=== PATIENT | male | born 1985 | race Caucasian/White ===

== ENCOUNTER → 2023-06-19 06:46 | Outpatient (REF) | payer OTHER, SELFPAY | LOC: PAVMRI 06:46 | PROVIDERS: ATTENDING PHYSICIAN Chiropractor; FAMILY PHYSICIAN Family Medicine | DX: M54.50 Low back pain, unspecified (principal) | CPT/HCPCS: 72148 ==

== ENCOUNTER 2025-03-14 13:01 | Emergency (ER) | payer OTHER, SELFPAY ==
[2025-03-14 13:11] VITALS: BP 169/97
--- NOTE | 2025-03-14 14:18 | ED.GENMED ---
History of Present Illness
General
Chief Complaint: Abdominal Pain
Source: patient
Exam Limitations: none
Time Seen by Provider: 03/14/25 13:58
History of Present Illness
History of Present Illness:
39yoM with no significant past medical history presenting for evaluation of abdominal pain. He initially started with pain in his right inguinal area about 2 months ago which he believes was from pulling a muscle. He had 1 day of burning
discomfort in the suprapubic region which has since resolved. He also has been having some upper abdominal discomfort and feeling like food is getting stuck when he swallows. He reports generalized abdominal bloating. He had an episode of sharp
umbilical pain this morning which was initially severe but has since resolved. He is worried that he may have a hernia although did not palpate any lumps. He denies any urinary issues, fevers, vomiting, constipation, diarrhea. No prior abdominal
surgeries. He was seen by gastroenterology about 2 years ago for transaminitis which has since resolved.
Past History
Past History
ED Past Medical History: None; Negative Asthma, HTN, Hypercholesterolemia or NIDDM
ED Past Surgical History: Orthopedic (Right Thumb surgery)
Social History
Tobacco: Non-smoker
Alcohol: Occasional
Personal:
Living: with family
Phy Exam
General Physical Exam
General Presentation: well appearing and no apparent distress
General age: appears stated age
General Skin: warm and dry
General Habitus: normal
General Mental: alert
ENT Exam
ENT Exam: normocephalic
Cardiovascular Exam
Cardiovascular Exam: regular rate/rhythm and no murmur
Pulmonary Exam
Pulmonary Exam: lungs clear, no respiratory distress, no rales, no crackles, no rhonchi and no wheezing
Gastrointestinal Exam
Gastrointestinal Exam: soft, non distended and other (Mild generalized abdominal pain. Abdomen soft, non-distended. No rebound or guarding. No palpable hernias. )
Neurological Exam
Neurological Exam: alert
[place] Coma Scale
Eye Opening: Spontaneous
Verbal Response: Oriented
Motor Response: Obeys Commands
GCS Total Score: 15
Skin Exam
Skin Exam: normal color and warm/dry
Psychiatric Exam
Psychiatric Exam: normal mood/affect
Course
Orders/Labs/Results
Orders:
Orders
03/14/25 14:33
Complete Blood Count/With Diff Urgent
Comprehensive Metabolic Panel Urgent
Lipase Urgent
Abnormal Lab Results
03/14/25
14:33
Carbon Dioxide 21 L mmol/L
(22-30)
03/14/25 14:33
03/14/25 14:33
Vital Signs
Initial and Last Documented VS:
Initial Vital Signs
Temp Pulse Resp BP Pulse Ox
97.7 F 83 20 169/97 100
03/14/25 13:11 03/14/25 13:11 03/14/25 13:11 03/14/25 13:11 03/14/25 13:11
Last Documented Vital Signs
Temp Pulse Resp BP Pulse Ox
97.7 F 78 18 143/79 98
03/14/25 13:11 03/14/25 16:30 03/14/25 16:30 03/14/25 16:30 03/14/25 16:30
MDM/Problems Addressed
Differential Diagnosis Includes:
39yoM here with abdominal symptoms x 2 months including bloating, difficulty swallowing food at times, and R inguinal discomfort. Had worsening periumbilical pain earlier today which has since resolved. He is hypertensive with otherwise stable
vitals. He appears comfortable on exam And abdominal exam is benign. Differential diagnosis includes: IBS, constipation, gastritis, doubt appendicitis
Initial ED plan: Recommended CT scan which patient would like to hold off on stating he has had multiple CT scans in the past several years and would like to avoid further radiation. Will check abdominal labs and reassess.
*Pulse Oximetry
SaO2: 100
Oxygen Mode of Delivery: Room air
Patient hypoxic: no
*Critical Care Note
Total Time (30-74mins, 75-104mins- exclusive of procedures): Not Applicable
Update Note
Update Note:
Labs unremarkable including normal white count, renal function, LFTs, and lipase. On reassessment, patient is states he was feeling much better. Abdominal exam repeated which remains benign. He would like to defer imaging at this time which is
reasonable. Very low clinical suspicion of acute surgical process. He has appointment scheduled with his PCP in 1 week. ED return precautions reviewed and he was discharged in stable condition.
ED Attending Note
-
Portions of this chart may have been created with voice recognition software.� Occasional wrong word or��sound alike� substitutions may have occurred due to the inherent limitations of voice recognition software.
Discharge Plan
Departure
Patient Disposition: Home (Routine Discharge)
Date of Disposition: 03/14/25
Time of Disposition: 16:19
Patient with high blood pressure during this ER visit?: Yes
Discharge Problem:
Nonspecific abdominal pain
Instructions: Abdominal Pain
Referrals:
Richard Barron MD [Family Provider, Family Practice]
Activity Restrictions/Additional Instructions:
Please follow-up with your PCP next week as previously scheduled. Return to the ER with any new or worsening symptoms including severe pain or fevers.
Interventions
Interventions:
*General Assessment Last Done: 03/14/25 13:11
*Neglect/Abuse Screening Last Done: 03/14/25 13:11
*ED COVID-19 Vaccine History Last Done: 03/14/25 16:29
*ED Influenza Vaccine History Last Done: 03/14/25 16:29
*Risk Screen - Suicide (C-SSRS) Last Done: 03/14/25 16:23
*Nursing Disposition Last Done: 03/14/25 16:30
ML-Yjwlri-Nxcxyiwaef Assessment Last Done: 03/14/25 14:39
Discharge Date and Time
Discharge Date/Time: 03/14/25 16:30
Print Language: PERSIAN
[2025-03-14 15:17] LABS: Hematocrit 45.1 % (39.0-52.0); Hemoglobin 16.1 g/dL (13.0-18.0); Mean Corp Hgb Conc. 35.7 g/dL (33.0-37.0); Mean Corpuscular Volume 83.1 fL (80.0-94.0); Nucleated Red Blood Cells % 0 % (-); Platelet Count 261 10^3/uL (130-400); Red Cell Dist. Width 11.7 % (11.5-14.5)
[2025-03-14 15:23] LABS: ALT (SGPT) 48 U/L (0-50); AST (SGOT) 32 U/L (17-59); Albumin 5.0 g/dl (3.5-5.0); Alkaline Phosphatase 66 U/L (38-126); Blood Urea Nitrogen 18 mg/dl (9-20); Calcium 9.6 mg/dl (8.4-10.2); Carbon Dioxide 21 mmol/L (22-30); Chloride 106 mmol/L (98-107); Glucose 93 mg/dl (70-99); Lipase 83 U/L (23-300); Potassium 4.5 mmol/L (3.5-5.1); Sodium 137 mmol/L (135-145); Total Protein 7.6 g/dl (6.3-8.2); eGFR > 60.00
[2025-03-14 16:30] VITALS: BP 143/79
== END 2025-03-14 16:30 | disposition home or self-care (01) ==
LOC: EMR 13:01
PROVIDERS: Physician Assistant; EMERGENCY PHYSICIAN Emergency Medicine; FAMILY PHYSICIAN Family Medicine
DX: R10.84 Generalized abdominal pain (principal); R14.0 Abdominal distension (gaseous); R03.0 Elevated blood-pressure reading, without diagnosis of hypertension; Z88.2 Allergy status to sulfonamides
CPT/HCPCS: 99283; 80053; 83690; 85025